=== PATIENT | male | born 1950 | race Caucasian/White ===

== ENCOUNTER → 2019-10-12 | Outpatient (CLI) | payer BC | LOC: CV 10:47 → ULTRA 10:47 → CV 12:02 | DX: I15.9 Secondary hypertension, unspecified (principal) ==

== ENCOUNTER → 2019-10-19 | Outpatient (CLI) | payer BC ==
--- NOTE | 2019-10-23 10:52 | EXE ---
[facility] [place] [address] STRESS ECHOCARDIOGRAM Name: SALBADOR HAYDEN [id number] Admission: 10/19/19 Attend Phys: George Sanchez MD Discharge: Date of : 50 Report #: [id number] THIS REPORT FOR: //name// APPROVED REPORT Study performed: 10/19/2019 13:15:14 Exam: Stress Echocardiogram Indication: Hypertension Patient Location: Out-Patient Room #: Echo lab 2 Status: routine Ht: 6 ft 0 in HR: 55 bpm BP: 158/88 mmHg Rhythm: Bradycardia Medical History Medical History: HTN Allergies: No known drug allergies Cardiac Risk Factors: HTN Exercise History: Indeterminate Procedure The patient underwent an Exercise Stress Test using the Lucio Protocol. Blood pressure, heart rate, and EKG were monitored. An Echocardiogram was performed by test technician in four stages in quad fashion. At peak stress, four selected images were obtained and placed side by side with resting images for comparison. Stress Test Details Stress Test: Exercise stress testing was performed using a Lucio protocol. HR Resting HR: 55 bpm Max Heart Rate (APMHR): 151 bpm Max HR Achieved: 142 bpm Target HR (85% APMHR): 128 bpm % of APMHR: 94 Recovery HR: 77 bpm HR response to stress: Normal HR response to stress BP Resting BP: 158/88 mmHg Max BP: 188/78 mmHg Recovery BP: 142/84 mmHg BP response to stress: Normal blood pressure response to [facility] [address] [place] [address] STRESS ECHOCARDIOGRAM Name: SALBADOR HAYDEN Room #: REG [facility]#: [id number] Admission: 10/19/19 Attend Phys: George Sanchez MD Discharge: Date of : 50 Report #: [id number] stress. ECG Resting ECG: Sinus Rhythm Stress ECG: Sinus Rhythm, nonspecific ST-T abnormalities ST Change: Non-ischemic Clinical Reason for Termination: Maximal effort Exercise duration: 9 min sec Highest Stage Achieved: Stage 3: 3.4 mph at 14% grade. Exercise capacity: 10.4 METs Overall Exercise Capacity for Age: Average Pre-Stress Echo The resting Echocardiogram showed normal left ventricular contractility with an estimated Ejection Fraction of about >55%. The resting echocardiogram demonstrated normal wall motion in all wall segments. Post-Stress Echo The stress Echocardiogram showed normal left ventricular contractility with an estimated Ejection Fraction of about 65-70%. Compared to rest, there were no stress-induced wall motion abnormalities. Clinical No clinical or ECG evidence for ischemia. Conclusion Clinical Response: Non-ischemic Exercise Capacity: Average Stress ECG Response: Non-ischemic Stress Echo Images: Non-ischemic The left ventricle is normal in size and wall thickness in both the rest and stress images. No prior study available for comparison. Other Information Study Quality: Adequate <Conclusion> [facility] [address] [place] [address] STRESS ECHOCARDIOGRAM Name: SALBADOR HAYDEN Room #: REG [facility]#: [id number] Admission: 10/19/19 Attend Phys: George Sanchez MD Discharge: Date of : 50 Report #: [id number] The left ventricle is normal in size and wall thickness in both the rest and stress images. <ELECTRONICALLY SIGNED> By: George Sanchez MD 10/23/192 51 51 George Sanchez MD /INF
== END ==
LOC: CV 12:40
DX: I15.9 Secondary hypertension, unspecified (principal)